=== PATIENT | male | born 1980 | race African-American/Black ===

== ENCOUNTER → 2017-06-15 | Outpatient (CLI) | payer MEDICARE, MEDICAID ==
[~2017-06-15] MED LIST: AMARYL2 MG PO; BENZTROPINE MES1 MG PO; CARDIZEM CD240 MG PO; COREG6.25 MG PO; CYMBALTA60 MG PO; HALOPERIDOL 5 MG5 MG PO; JANUMET 50-1,01 EACH PO; LANTUS SUBQ; LEXAPRO 10 MG T10 M2 PO; LIPITOR 20 MG T20 M1 PO; LISINOPRIL-HCT1 EAC2 PO; LORAZEPAM 1 MG T1 M1 PO; PERCOCET 5-3251 EACH PO; PERCOCET 7.5-31 EAC1 PO; PERCOCET 7.5-31 EACH PO; PERCOCET PO; SKELAXIN 800 M800 M1 PO; TIZANIDINE HCL4 MG PO; TOPAMAX 100 MG100 MG PO; TRAZODONE HCL50 MG PO; ZANAFLEX4 MG PO
--- NOTE | 2017-06-20 07:21 | PAINCON ---
[facility] [address] [place] [address] PAIN MANAGEMENT CONSULTATION Name: PHOEBE CORONEL Room: [facility] SHWETHA David#: [id number] Admission: 06/15/17 Attend Phys: Lino Moon Discharge: Date of : 84 Report #: [id number] THIS REPORT FOR: //name// CC: Reg Murillo HISTORY OF PRESENT ILLNESS: The patient is a 37-year-old gentleman being treated for myofascial pain, chronic pain syndrome requiring complex medication management. He came to me taking hydrocodone 7.5/325 at bedtime (12/15/2016). After thorough physical exam and history, we had continued the patient on baseline medication; last month, we dropped from 7.5 to 5 mg at bedtime of oxycodone. Continued Cymbalta 60 mg daily, Skelaxin 800 mg b.i.d. for spasm. Returns to pain clinic today noting medications are effective, he noted nominal change decreasing his opiate by 33%. PHYSICAL EXAMINATION: Shows obese 37-year-old gentleman, BMI is 50.1 kilograms per meter squared (5 feet 7 inches tall, 320 pounds). Blood pressure is modestly elevated at 144/96, pulse 61, respirations 16. The patient notes he has not taken his blood pressure medicine today. Cervical range of motion is full. Rises from chair using armrest. Gait is tandem. Diffuse tenderness in the upper back. No discrete trigger points are noted. Slight decreased range of motion of cervical spine. Upper extremity strength is preserved. ASSESSMENT: Myofascial pain requiring high risk complex medication management, chronic pain syndrome. RECOMMENDATION: The patient is doing well on current medication. We will continue Percocet 5/325 at bedtime. The patient feels that tizanidine had been more efficacious than Skelaxin. We will rotate back to tizanidine 4 mg up to t.i.d. for spasm. We reviewed the fact that opiate medications are being used to provide analgesia adequate to support activities of daily living, not attempting to achieve a specific pain score on the 0-10 Visual Analog Scale. The current opiate medications are providing sufficient analgesia to allow the patient to participate in activities of daily living. The patient is not exhibiting any aberrant behavior suggestive of drug diversion. The patient is not having any adverse reactions to medications. The patient is not suffering from daytime somnolence or mental acuity changes. The patient is managing opiate-induced constipation with appropriate xaqe-twc-dyqolpn agents and dietary considerations. The patient was counseled on concern for caution with operating a motor vehicle while using opiate medications. A physical exam was performed and the patient's functional status was evaluated. All patients with back pain were advised against the bed rest greater than 4 days and were advised to return to normal activities. Pain score assessment was noted and the treatment plan was reviewed with the [place] [address] PAIN MANAGEMENT CONSULTATION Name: PHOEBE CORONEL Room: DAMIEN Hernandez#: [id number] Admission: 06/15/17 Attend Phys: Lino Moon Discharge: Date of : 84 Report #: [id number] medications, both prescribed and OTC were reviewed and reconciled on the electronic medical record. Tobacco screening was accomplished and smoking cessation was advised when indicated. BMI was noted and diet/exercise modification was recommended for all patients following outside normal parameters. I reviewed with the patient today their responsibilities to safeguard prescription medications, reviewed their responsibility to utilize medications only as prescribed by the physician. They are to seek and receive pain medications only from 1 physician group ( [facility]). They are to use 1 pharmacy and keep the clinic informed if they change pharmacies. Their responsibilities include making followup visits in a timely fashion and to avoid abrupt discontinuation of medication usage. Their responsibilities further include bringing their medications (bottles from the pharmacy with residual pills) to the visit for possible confirmation of pill counts and the patient understands it is their responsibility to submit to random drug screens to ensure both that the medications prescribed are present, and that no other controlled substances are present. All prescriptions provided today were generated electronically. Follow up in 2 months for reevaluation. <ELECTRONICALLY SIGNED> By: Wang Murillo DO 06/20/17 0721 1557 [id number] Murillo DO /nt
== END ==
LOC: M.PC 01:37
DX: M79.1 Myalgia (principal); G89.4 Chronic pain syndrome

== ENCOUNTER → 2017-08-10 | Outpatient (CLI) | payer MEDICARE, MEDICAID ==
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
== END ==
LOC: M.PC 02:29
DX: G89.4 Chronic pain syndrome (principal); M54.5 Low back pain; Z79.899 Other long term (current) drug therapy

== ENCOUNTER → 2017-10-05 | Outpatient (CLI) | payer MEDICARE, MEDICAID ==
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
== END ==
LOC: M.PC 03:58
DX: M54.5 Low back pain (principal); E66.01 Morbid (severe) obesity due to excess calories; G89.4 Chronic pain syndrome; M79.1 Myalgia; F25.9 Schizoaffective disorder, unspecified; Z79.899 Other long term (current) drug therapy

== ENCOUNTER → 2017-11-23 | Outpatient (CLI) | payer MEDICARE, MEDICAID ==
--- NOTE | 2017-11-24 07:04 | PAINCON ---
[facility] [address] [place] [address] PAIN MANAGEMENT CONSULTATION Name: PHOEBE CORONEL Room: [facility] SHWETHA David#: [id number] Admission: 11/23/17 Attend Phys: Lino Moon Discharge: Date of : 82 Report #: [id number] THIS REPORT FOR: //name// CC: Reg Murillo DATE OF SERVICE: 11/23/2017 The patient is a pleasant 37-year-old gentleman being treated for myofascial pain requiring complex medication management. Component of morbid obesity with BMI 48.4 kilograms per meter squared. Last seen in the pain clinic 10/05/2017. Continued on Percocet 5/325 at bedtime, Cymbalta 60 mg daily, tizanidine 4 mg up to 4 a day for spasm. Returns to pain clinic today noting pain is a 7-8 on a VAS. Axial back pain is a little bit improved, complaining more of upper back pain and neck pain. Notes medications are helpful. No problems with daytime somnolence, mental acuity changes, constipation. PHYSICAL EXAMINATION: Shows 5-foot 7-inch tall, 315-pound gentleman, BMI is 48.4 kilograms per meter squared. Blood pressure is a little bit elevated today 155/92, pulse 75, respirations 16. Cervical range of motion is limited, diffuse tenderness in the splenius capitis, trapezius, upper thoracic paravertebral muscles. No discrete trigger points noted. Rises from chair using armrest, modestly antalgic gait. We reviewed the fact that opiate medications are being used to provide analgesia adequate to support activities of daily living, not attempting to achieve a specific pain score on the 0-10 Visual Analog Scale. The current opiate medications are providing sufficient analgesia to allow the patient to participate in activities of daily living. The patient is not exhibiting any aberrant behavior suggestive of drug diversion. The patient is not having any adverse reactions to medications. The patient is not suffering from daytime somnolence or mental acuity changes. The patient is managing opiate-induced constipation with appropriate eroc-spw-kdimopt agents and dietary considerations. The patient was counseled on concern for caution with operating a motor vehicle while using opiate medications. A physical exam was performed and the patient's functional status was evaluated. All patients with back pain were advised against the bed rest greater than 4 days and were advised to return to normal activities. Pain score assessment was noted and the treatment plan was reviewed with the patient. All current medications, both prescribed and OTC were reviewed and reconciled on the electronic medical record. Tobacco screening was accomplished and smoking cessation was advised when indicated. BMI was noted and diet/exercise modification was recommended for [place] [address] PAIN MANAGEMENT CONSULTATION Name: PHOEBE CORONEL Room: DAMIEN Hernandez#: [id number] Admission: 11/23/17 Attend Phys: Lino Moon Discharge: Date of : 84 Report #: [id number] parameters. I reviewed with the patient today their responsibilities to safeguard prescription medications, reviewed their responsibility to utilize medications only as prescribed by the physician. They are to seek and receive pain medications only from 1 physician group ( [facility]). They are to use 1 pharmacy and keep the clinic informed if they change pharmacies. Their responsibilities include making followup visits in a timely fashion and to avoid abrupt discontinuation of medication usage. Their responsibilities further include bringing their medications (bottles from the pharmacy with residual pills) to the visit for possible confirmation of pill counts and the patient understands it is their responsibility to submit to random drug screens to ensure both that the medications prescribed are present, and that no other controlled substances are present. All prescriptions provided today were generated electronically. ASSESSMENT: Chronic axial back pain, myofascial pain requiring complex medication management. The patient is doing very well on low dose opiate, Percocet 5/325 at bedtime, Cymbalta 60 mg 1 a day, tizanidine for spasm 4 mg 3-4 times a day. RECOMMENDATION: I have taken the liberty of writing for 2 months of current medication. Follow up with Dr. Rony Miles. <ELECTRONICALLY SIGNED> By: Wang Murillo DO 11/24/17 0704 1338 [id number] Murillo DO /nt
== END ==
LOC: M.PC 04:45
DX: G89.29 Other chronic pain (principal); M79.1 Myalgia; Z79.899 Other long term (current) drug therapy

== ENCOUNTER → 2018-01-17 | Outpatient (CLI) | payer MEDICARE, MEDICAID ==
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
== END ==
LOC: M.PC 03:46
DX: I10 Essential (primary) hypertension (principal); M79.1 Myalgia; E11.9 Type 2 diabetes mellitus without complications; E66.01 Morbid (severe) obesity due to excess calories; Z79.899 Other long term (current) drug therapy

== ENCOUNTER → 2018-03-14 | Outpatient (CLI) | payer MEDICARE, MEDICAID ==
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
== END ==
LOC: M.PC 04:57
DX: M79.18 Myalgia, other site (principal); I10 Essential (primary) hypertension; E11.9 Type 2 diabetes mellitus without complications; E66.01 Morbid (severe) obesity due to excess calories; Z79.899 Other long term (current) drug therapy

== ENCOUNTER → 2018-05-02 | Outpatient (CLI) | payer MEDICARE, MEDICAID ==
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
== END ==
LOC: M.PC 04:43
DX: M79.18 Myalgia, other site (principal); G89.29 Other chronic pain; E66.01 Morbid (severe) obesity due to excess calories; I10 Essential (primary) hypertension; E11.9 Type 2 diabetes mellitus without complications; Z79.899 Other long term (current) drug therapy; Z68.42 Body mass index [BMI] 45.0-49.9, adult

== ENCOUNTER → 2018-05-30 | Outpatient (CLI) | payer OTHER, MEDICAID ==
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
== END ==
LOC: M.PC 11:30
DX: M54.2 Cervicalgia (principal); M54.5 Low back pain; M79.18 Myalgia, other site; I10 Essential (primary) hypertension; E11.9 Type 2 diabetes mellitus without complications; E66.01 Morbid (severe) obesity due to excess calories; Z79.899 Other long term (current) drug therapy

== ENCOUNTER → 2018-07-25 | Outpatient (CLI) | payer OTHER, MEDICAID ==
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
== END ==
LOC: M.PC 05:00
DX: M79.18 Myalgia, other site (principal); E66.01 Morbid (severe) obesity due to excess calories; E11.9 Type 2 diabetes mellitus without complications; I10 Essential (primary) hypertension; Z79.899 Other long term (current) drug therapy; Z68.43 Body mass index [BMI] 50.0-59.9, adult

== ENCOUNTER → 2018-09-21 | Outpatient (CLI) | payer OTHER, MEDICAID ==
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
== END ==
LOC: M.PC 09-19 04:38
DX: G89.29 Other chronic pain (principal); M79.18 Myalgia, other site; M54.5 Low back pain; I10 Essential (primary) hypertension; E11.9 Type 2 diabetes mellitus without complications; E66.01 Morbid (severe) obesity due to excess calories; Z68.43 Body mass index [BMI] 50.0-59.9, adult; Z79.899 Other long term (current) drug therapy

== ENCOUNTER → 2018-11-14 | Outpatient (CLI) | payer OTHER, MEDICAID ==
[~2018-11-14] MED LIST changes: +AMBIEN 5 MG TABL5 M1 PO
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
== END ==
LOC: M.PC 05:11
DX: G89.29 Other chronic pain (principal); M79.10 Myalgia, unspecified site; I10 Essential (primary) hypertension; E11.9 Type 2 diabetes mellitus without complications; E66.01 Morbid (severe) obesity due to excess calories; Z68.43 Body mass index [BMI] 50.0-59.9, adult; Z79.899 Other long term (current) drug therapy

== ENCOUNTER → 2019-01-09 | Outpatient (CLI) | payer OTHER, MEDICAID ==
--- NOTE | ~2019-01-09 | PAINCON ---
[facility] [address] [place] [address] PAIN MANAGEMENT CONSULTATION Name: PHOEBE CORONEL Room: [facility] SHWETHA Domingo.#: [id number] Admission: 01/09/19 Attend Phys: Alma Miles MD Discharge: Date of : 84 Report #: [id number] THIS REPORT FOR: //name// CC: Reg Miles DATE OF SERVICE: 01/09/2019 PRIMARY CARE PHYSICIAN: Reg Walters MD CHIEF COMPLAINT: Pain in the neck and upper back area. HISTORY: The patient is a 38-year-old gentleman who has been followed in the pain clinic. As you recall continues to have pain and discomfort, which is problematic. He continues to have headaches. Pain is worse in the mornings. Continue to radiate through his whole body. He rates his pain as a 7/10. He feels that the tizanidine medication is helpful with the spasms. Notes that rest can be beneficial as well. Changing of temperatures can be problematic. States that he continues to take his medication as prescribed. Denies giving or selling his medication to anyone. States he is taking it as described and that it is helpful. He would like to continue with the medication. ALLERGIES: No known drug allergies. CURRENT MEDICATIONS: Lipitor 20 mg, Cogentin 1 mg b.i.d., Coreg 12.5 mg, diltiazem 240 mg, Cymbalta 60 mg, Haldol 5 mg b.i.d., lisinopril/hydrochlorothiazide 20/25 b.i.d., oxycodone 5 mg at bedtime p.r.n., sitagliptin/metformin 100 mg/1000 mg, tizanidine 4 mg t.i.d., trazodone 50 mg. PAIN CLINIC ASSESSMENT/PQRS: 1. The patient does not have a history of osteoarthritis. He is not being treated for rheumatoid arthritis. 2. Height 5 feet 7 inches, weight 315 pounds, BMI is 49.3. 3. Vital signs: Blood pressure 155/99, heart rate 84, respiratory rate 16, room air saturation 95%, temperature 98.1. 4. Pain intensity 7/10. 5. Fall history: The patient has not fallen in the last 3 months. 6. Blood thinner. The patient is not on a blood thinning medication. 7. Hypertension. The patient is being treated for hypertension. 8. Opioids greater than 6 weeks. The patient receives medication from one source, the pain clinic. 9. Risk assessment tool, moderate for opioid use. 10. Functional assessment tool. 11. Recreational drug use. The patient denies use of recreational drugs. 12. Tobacco: The patient denies use of tobacco. 13. Alcohol. The patient denies frequent [place] [address] PAIN MANAGEMENT CONSULTATION Name: PHOEBE CORONEL Room: [facility]#: [id number] Admission: 01/09/19 Attend Phys: Alma Miles MD Discharge: Date of : 84 Report #: [id number] PHYSICAL EXAMINATION: GENERAL: The patient is a well-developed, well-nourished, somewhat obese black male, appears his stated age. He is alert and oriented x 3. His affect is appropriate. Speech is fluent. HEENT: Normocephalic, atraumatic. Extraocular eye muscles intact. Sclerae nonicteric. Mucous membranes are moist. NECK: Without adenopathy or JVD. HEART: Regular rate. ABDOMEN: Nontender and protuberant. MUSCULOSKELETAL: Upper extremity muscle strength is judged to be 5/5 for the major muscle groups in the upper extremity. The patient has pain and discomfort in the left shoulder. Complains of pain in the right shoulder and the trapezius area without significant scoliosis, kyphosis or lordosis. Lower extremity muscle strength is judged to be 5/5 for the major muscle groups in the lower extremity. IMPRESSION: 1. Chronic myofascial pain. 2. Complex medical management with high-risk medications. 3. Morbid obesity. 4. Hypertension. 5. Diabetes. RECOMMENDATION: The patient appears to be doing reasonably well. He is engaging. Discussed the excitement of the new football season. He seems to be stable mentally. We have discussed the use of opioid medications. Explained to the patient the problems with opioids. They can become problematic and that patients may develop a dependence. The patient does not seem to be developing a problem with his medications. We explained that patients sometimes can become addicted. He does not show any signs of addictive behavior. We have reminded him to take his medication as prescribed, even if he has pain and discomfort earlier in the month he cannot his take his medications other than as prescribed. A script for his medications has been renewed. He will call us if he has any concerns. Keeps his medications in a guarded area. We would like to thank you for letting us participate in his care. We hope he continues to improve. We will continue with the patient's use of complex medical management to help control his pain. By: [id number]. Rony Miles MD /PMT
== END ==
LOC: M.PC 04:53
DX: M79.18 Myalgia, other site (principal); G89.29 Other chronic pain; M54.2 Cervicalgia; E66.01 Morbid (severe) obesity due to excess calories; I10 Essential (primary) hypertension; E11.9 Type 2 diabetes mellitus without complications; Z79.899 Other long term (current) drug therapy; Z79.891 Long term (current) use of opiate analgesic

== ENCOUNTER → 2019-03-06 | Outpatient (CLI) | payer OTHER, MEDICAID ==
[~2019-03-06] MED LIST changes: +MOBIC15 MG PO
--- NOTE | 2019-03-07 09:09 | PAINCON ---
[facility] [address] [place] [address] PAIN MANAGEMENT CONSULTATION Name: PHOEBE CORONEL Room: DAMIEN Hernandez#: [id number] Admission: 03/06/19 Attend Phys: Alma Miles MD Discharge: Date of : 84 Report #: [id number] THIS REPORT FOR: //name// CC: Reg Miles DATE OF SERVICE: 03/06/2019 PRIMARY CARE PHYSICIAN: Reg Walters MD CHIEF COMPLAINT: Pain in the neck and upper back. "I fell at work and hurt my right knee." HISTORY: The patient is a 39-year-old gentleman who has been followed in the pain clinic because of chronic pain. He continues to have pain and discomfort in his back. He has continuous had problems with headaches. Pain is worse in the morning. Notes that he has some pain and muscle spasms in his back. He feels that the tizanidine medication is helpful with that. The patient was at work. He tripped over a box. He hurt his right knee. He has an abrasion on his mancera. This happened on 03/02/2019. He rates his pain today as a 7/10. He has returned today for renewal of his medications. He states that he has taken the medication as prescribed. ALLERGIES: No known drug allergies. CURRENT MEDICATIONS: Lipitor 20 mg, Cogentin 1 mg b.i.d., Coreg 12.5 mg, diltiazem 240 mg, Cymbalta 60 mg, Haldol 5 mg b.i.d., lisinopril/hydrochlorothiazide 20/25 b.i.d., oxycodone 5 mg 1 p.o. at bedtime, sitagliptin/metformin 100 mg/1000 mg, tizanidine 4 mg t.i.d., trazodone 50 mg. PAIN CLINIC ASSESSMENT AND PQRS: 1. The patient is not being treated for osteoarthritis. He is not being treated for rheumatoid arthritis. 2. Height 5 feet 7 inches, weight is 313 pounds, BMI is 49.1. 3. Vital signs: Blood pressure 144/92, heart rate 81, respiratory rate 20, room air saturation 96%, temperature 98.4. 4. Pain intensity 11/22. 5. Fall history: The patient fell at work on 12/23/2018, but did not require medical attention. 6. Blood thinner. The patient is not on a blood thinning medication. 7. Hypertension. The patient is being treated for hypertension. 8. Opioids greater than 6 weeks. The patient received medication from one source, pain clinic. 9. Risk assessment tool, moderate for opioid use. 10. Functional assessment tool. 11. Recreational [place] [address] PAIN MANAGEMENT CONSULTATION Name: PHOEBE CORONEL Room: [facility] David#: [id number] Admission: 03/06/19 Attend Phys: Alma Miles MD Discharge: Date of : 84 Report #: [id number] 12. Tobacco: The patient denies use of tobacco. 13. Alcohol. The patient denies frequent use of alcoholic beverages. PHYSICAL EXAMINATION: GENERAL: The patient is a well-developed, well-nourished, obese black male, appears his stated age. He is alert and oriented x 3. His affect is appropriate. Speech is fluent. HEENT: Normocephalic, atraumatic. Extraocular eye muscles intact. Sclerae nonicteric. Mucous membranes are moist. NECK: Without adenopathy or JVD. HEART: Regular rate. ABDOMEN: Nontender, protuberant. MUSCULOSKELETAL: Upper extremity muscle strength is judged to be 5/5 for the major muscle groups in the upper extremity. The patient has some discomfort in his shoulders. Complains of pain in the right shoulder as well as the trapezius area and the patient without significant scoliosis, kyphosis or lordosis. The patient has an abrasion approximately 5 inches below his knee in about 5 inches long, which is just skin deep. States that this was as a result of a fall on the box at work. Major muscle groups in the lower extremities judged to be 5/5 for the major muscle groups. IMPRESSION: 1. Chronic myofascial pain. 2. Complex medical management treated with high risk medications using opioids. 3. Morbid obesity. 4. Hypertension. 5. Diabetes. RECOMMENDATIONS: We discussed treatment options with the patient. At this juncture, we will continue with his medications. He feels that the one tablet of hydrocodone daily is helpful. It enables him to rest after he gets home. He feels that the ibuprofen medication is not as effective as he would like. We will try meloxicam. He will only need to take this medication once daily. Hopefully, it will be more beneficial than these three times daily use of ibuprofen. He will also continue with the tizanidine for muscle relaxant. He will call us if he has any concerns. We would like to thank you for letting us participate in his care. We hope he continues to improve. A script for his medications have been released. <ELECTRONICALLY SIGNED> By: Alma Miles MD 03/07/19 0909 [id number] [id number]. MD BLANKA Tim
== END ==
LOC: M.PC 05:26
DX: M54.5 Low back pain (principal); M54.2 Cervicalgia; I10 Essential (primary) hypertension; E11.9 Type 2 diabetes mellitus without complications; E66.01 Morbid (severe) obesity due to excess calories; M79.18 Myalgia, other site; Z79.891 Long term (current) use of opiate analgesic; Z79.899 Other long term (current) drug therapy; Z88.8 Allergy status to other drugs, medicaments and biological substances

== ENCOUNTER → 2019-05-01 | Outpatient (CLI) | payer OTHER, MEDICAID ==
--- NOTE | 2019-05-15 14:48 | PAINCON ---
[facility] [address] [place] [address] PAIN MANAGEMENT CONSULTATION Name: PHOEBE CORONEL Room: [facility] SHWETHA DomingoHay#: [id number] Admission: 05/01/19 Attend Phys: Alma Miles MD Discharge: Date of : 84 Report #: [id number] THIS REPORT FOR: //name// CC: Reg Miles DATE OF SERVICE: 05/01/2019 CHIEF COMPLAINT: Pain in the upper neck as well as in the back. HISTORY: The patient is a 39-year-old gentleman who has been followed in the pain clinic. He has pain and discomfort, which is chronic. It involves his neck. Continues to cause chronic headaches. Notes that the pain can be more problematic in the morning. He feels that his pain is an 8/10. He has been taking his medications of meloxicam, nonsteroidal anti-inflammatory medication. Feels that the Percocet 1 tablet 3 times daily is helpful. He also continues to use his tizanidine to help with muscle spasms. He notes that the weather pattern has changed. The colder weather has caused uptake in his pain level. ALLERGIES: No known drug allergies. CURRENT MEDICATIONS: Lipitor 20 mg, Cogentin 1 mg b.i.d., Coreg 12.5 mg, diltiazem 240 mg, Cymbalta 60 mg, Haldol 5 mg b.i.d., lisinopril/hydrochlorothiazide 20/25 mg b.i.d., oxycodone 5 mg 1 p.o. t.i.d., sitagliptin/metformin 100 mg/1000 mg, tizanidine 4 mg t.i.d. and trazodone 50 mg. PAIN CLINIC ASSESSMENT/PQRS: 1. The patient is not being treated for ostarthritis. He is not being treating for rheumatoid arthritis. 2. Height 5 feet 7 inches, weight 312 pounds, BMI is 49.1. 3. Vital signs: Blood pressure 186/87, heart rate 85, respiratory rate 16, room air saturation is 97%, temperature 98.0. 4. Pain intensity 8/10. 5. Fall history: The patient has not fallen in the last 3 months. 6. Blood thinner. The patient is not on a blood thinning medication. 7. Hypertension. The patient is being treated for hypertension and he states he follows up with his primary in that regard. 8. Opioids greater than 6 weeks. The patient received medication from one source of pain clinic. 9. Risk assessment tool, moderate for opioid use. 10. Functional assessment tool. 11. Recreational drug use: The patient denies. 12. Tobacco: The patient denies use of tobacco. 13. Alcohol. The patient [place] [address] PAIN MANAGEMENT CONSULTATION Name: PHOEBE CORONEL Room: [facility]#: [id number] Admission: 05/01/19 Attend Phys: Alma Miles MD Discharge: Date of : 84 Report #: [id number] PHYSICAL EXAMINATION: GENERAL: The patient is a well-developed, well-nourished, obese black male, appears his stated age. He is alert and oriented x 3. His affect is appropriate. He appears relaxed. HEENT: Normocephalic, atraumatic. Extraocular eye muscles intact. Sclerae nonicteric. Mucous membranes are moist. NECK: Without adenopathy or JVD. HEART: Regular rate. ABDOMEN: Nontender, protuberant. MUSCULOSKELETAL: Strength in the upper extremity5/5 for the major muscle groups in the upper extremity. The patient has some discomfort in his shoulders. Complains of pain in the area of the trapezius muscles. He is without kyphosis, scoliosis or lordosis. Notes his pain is an 8/10. Also, complains of some increased pain and discomfort in his jaw. He works at [employer]. Major muscle groups in the lower extremities judged to be 5/5 for the major muscle groups. IMPRESSION: 1. Chronic myofascial pain. 2. Complex medical management and treatment of chronic pain using opioid regimen. 3. Morbid obesity. 4. Hypertension. 5. Diabetes. RECOMMENDATIONS: We discussed treatment options with the patient. At this juncture, we will continue with his medications. He feels that the medications are helpful. He does not have any problems with them. He does work at [employer]. States that the increased workload now that is [place] has exacerbated and elevate his pain. Cold weather has been an item as well. Rates his pain today as an 8/10. He has had no complication from his medications. He is aware that opioid medications and their use can sometimes be problematic in certain people. He is not having any problems with addiction. He is not taking medications from other physicians. Overall, things are going well. He is able to work in his environment without difficulty dentally. We will continue with his medications. A script for his medications of meloxicam 15 mg 1 p.o. daily. He will continue to monitor his GI tract for this medication. Nonsteroidal anti-inflammatory medications can cause some GI upset. The patient will also continue with the Zanaflex. He denies any problems with sedation while taking his medication. He is able to work without problem. Feels that the oxycodone medication 5 mg is helpful as well. He will call us if he has any problems [place] [address] PAIN MANAGEMENT CONSULTATION Name: PHOEBE CORONEL [id number] Admission: 05/01/19 Attend Phys: Alma Miles MD Discharge: Date of : 84 Report #: [id number] We would like to thank you for letting us participate in his care. We hope he continues to improve. <ELECTRONICALLY SIGNED> By: Alma Miles MD 05/15/19 1448 [id number]. Rony Miles MD /nt
== END ==
LOC: M.PC 04:57
DX: M79.18 Myalgia, other site (principal); G89.29 Other chronic pain; E66.01 Morbid (severe) obesity due to excess calories; I10 Essential (primary) hypertension; E11.9 Type 2 diabetes mellitus without complications; Z79.899 Other long term (current) drug therapy; Z79.891 Long term (current) use of opiate analgesic

== ENCOUNTER → 2019-06-26 | Outpatient (CLI) | payer MEDICARE, MEDICAID ==
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
== END ==
LOC: M.PC 09:30
DX: R51 Headache (principal); G89.29 Other chronic pain; E66.01 Morbid (severe) obesity due to excess calories; I10 Essential (primary) hypertension; E11.9 Type 2 diabetes mellitus without complications; Z79.891 Long term (current) use of opiate analgesic

== ENCOUNTER → 2019-08-21 | Outpatient (CLI) | payer MEDICARE, MEDICAID ==
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
== END ==
LOC: M.PC 04:55
DX: M54.2 Cervicalgia (principal); M25.519 Pain in unspecified shoulder; M79.18 Myalgia, other site; F11.20 Opioid dependence, uncomplicated; E66.9 Obesity, unspecified; I10 Essential (primary) hypertension; E11.9 Type 2 diabetes mellitus without complications; Z79.899 Other long term (current) drug therapy

== ENCOUNTER → 2019-10-16 | Outpatient (CLI) | payer MEDICARE, MEDICAID ==
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
== END ==
LOC: M.PC 04:52
PROVIDERS: ATTEND Anesthesiology Pain Medicine
DX: M54.5 Low back pain (principal); E11.9 Type 2 diabetes mellitus without complications; I10 Essential (primary) hypertension; E66.01 Morbid (severe) obesity due to excess calories; M79.18 Myalgia, other site; F11.20 Opioid dependence, uncomplicated; Z79.899 Other long term (current) drug therapy

== ENCOUNTER → 2019-12-11 | Outpatient (CLI) | payer MEDICARE, MEDICAID ==
[~2019-12-11] MED LIST changes: +FLEXERIL PO; +IBU800 MG PO
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
== END ==
LOC: M.PC 05:10
PROVIDERS: ATTEND Anesthesiology Pain Medicine
DX: M54.2 Cervicalgia (principal); M54.9 Dorsalgia, unspecified; M79.10 Myalgia, unspecified site; E66.01 Morbid (severe) obesity due to excess calories; I10 Essential (primary) hypertension; E11.9 Type 2 diabetes mellitus without complications; Z79.899 Other long term (current) drug therapy

== ENCOUNTER → 2020-02-05 | Outpatient (CLI) | payer MEDICARE, MEDICAID ==
[~2020-02-05] MED LIST changes: +CLONIDINE HCL0.2 M2 PO
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
== END ==
LOC: M.PC 09:44
PROVIDERS: ATTEND Anesthesiology Pain Medicine
DX: Z76.0 Encounter for issue of repeat prescription (principal); G89.29 Other chronic pain; E11.9 Type 2 diabetes mellitus without complications; I10 Essential (primary) hypertension; F11.20 Opioid dependence, uncomplicated; M79.10 Myalgia, unspecified site

== ENCOUNTER → 2020-04-01 | Outpatient (CLI) | payer MEDICARE, MEDICAID ==
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
== END ==
LOC: M.PC 10:10
PROVIDERS: ATTEND Anesthesiology Pain Medicine
DX: M54.2 Cervicalgia (principal); M25.519 Pain in unspecified shoulder

== ENCOUNTER → 2020-05-27 | Outpatient (CLI) | payer MEDICARE, MEDICAID | LOC: M.PC 09:36 | PROVIDERS: ATTEND Anesthesiology Pain Medicine | DX: M54.5 Low back pain (principal); G89.29 Other chronic pain; E66.01 Morbid (severe) obesity due to excess calories; I10 Essential (primary) hypertension; E11.9 Type 2 diabetes mellitus without complications; M79.10 Myalgia, unspecified site; M54.2 Cervicalgia ==

== ENCOUNTER → 2020-07-22 | Outpatient (CLI) | payer MEDICARE, MEDICAID | LOC: M.PC 10:00 | PROVIDERS: ATTEND Anesthesiology Pain Medicine | DX: M54.5 Low back pain (principal); G89.29 Other chronic pain; M79.10 Myalgia, unspecified site; E66.01 Morbid (severe) obesity due to excess calories; I10 Essential (primary) hypertension; E11.9 Type 2 diabetes mellitus without complications; Z88.8 Allergy status to other drugs, medicaments and biological substances; Z79.899 Other long term (current) drug therapy ==

== ENCOUNTER → 2020-09-16 | Outpatient (CLI) | payer MEDICARE, MEDICAID ==
[~2020-09-16] MED LIST changes: +CLONAZEPAM 0.50.5 M1 PO
== END ==
LOC: M.PC 09:22
PROVIDERS: ATTEND Anesthesiology Pain Medicine
DX: M54.5 Low back pain (principal); G89.29 Other chronic pain; E66.01 Morbid (severe) obesity due to excess calories; E11.9 Type 2 diabetes mellitus without complications; I10 Essential (primary) hypertension

== ENCOUNTER → 2020-11-11 | Outpatient (CLI) | payer MEDICARE, MEDICAID | LOC: M.PC 10:00 | PROVIDERS: ATTEND Anesthesiology Pain Medicine | DX: M79.10 Myalgia, unspecified site (principal); E66.01 Morbid (severe) obesity due to excess calories; I10 Essential (primary) hypertension; E11.9 Type 2 diabetes mellitus without complications; Z79.891 Long term (current) use of opiate analgesic; Z79.899 Other long term (current) drug therapy ==

== ENCOUNTER → 2021-01-06 | Outpatient (CLI) | payer MEDICARE, MEDICAID | LOC: M.PC 09:56 | PROVIDERS: ATTEND Anesthesiology Pain Medicine | DX: M54.5 Low back pain (principal); G89.29 Other chronic pain; I10 Essential (primary) hypertension; E11.9 Type 2 diabetes mellitus without complications; E66.01 Morbid (severe) obesity due to excess calories; M79.18 Myalgia, other site; Z79.899 Other long term (current) drug therapy ==

== ENCOUNTER → 2021-03-03 | Outpatient (CLI) | payer MEDICARE, MEDICAID | LOC: M.PC 09:57 | PROVIDERS: ATTEND Anesthesiology Pain Medicine | DX: G89.29 Other chronic pain (principal); M54.50 Low back pain, unspecified; M79.18 Myalgia, other site; I10 Essential (primary) hypertension; E11.9 Type 2 diabetes mellitus without complications; E66.9 Obesity, unspecified; F25.8 Other schizoaffective disorders; Z79.899 Other long term (current) drug therapy ==

== ENCOUNTER → 2021-04-28 | Outpatient (CLI) | payer MEDICARE, MEDICAID ==
[~2021-04-28] MED LIST changes: +XANAX 0.5 MG0.5 MG PO
== END ==
LOC: M.PC 09:51
PROVIDERS: ATTEND Anesthesiology Pain Medicine
DX: M79.18 Myalgia, other site (principal); M54.50 Low back pain, unspecified; E66.01 Morbid (severe) obesity due to excess calories; I10 Essential (primary) hypertension; E11.9 Type 2 diabetes mellitus without complications; Z79.899 Other long term (current) drug therapy

== ENCOUNTER → 2021-06-23 | Outpatient (CLI) | payer MEDICARE, MEDICAID | LOC: M.PC 09:29 | PROVIDERS: ATTEND Anesthesiology Pain Medicine | DX: M54.50 Low back pain, unspecified (principal); M79.18 Myalgia, other site; I10 Essential (primary) hypertension; E11.9 Type 2 diabetes mellitus without complications; E66.9 Obesity, unspecified; Z79.899 Other long term (current) drug therapy ==